=== PATIENT | female | born 1995 | race Native Hawaiian/Other Pacific Islander ===

== ENCOUNTER 2017-02-06 00:05 | Emergency (ER) | payer OTHER ==
[~2017-02-06] VITALS: Ht 162.6 cm; Wt 67.2 kg
[~2017-02-06 00:05] MED LIST: CIPR0.3S RIGHT EAR
[2017-02-06 00:19] VITALS: BP 120/71; PULSE 77; RESP 16; TEMP 98.6; O2SAT 100
[2017-02-06] MEDS ORDERED: MONT10TA2 PO (00:55)
--- NOTE | 2017-02-06 01:51 | PD ---
HPI Chief Complaint: Eye Problems/Injury Time Seen by Provider: 01:40 Travel History International Travel<30 days: Yes Contact w/Intl Traveler<30days: [place] of Country Traveled to: [place] Traveled to known affect area: No History of Present Illness HPI The patient is a 21-year-old female that tripped in a dark bedroom heading to bed, she had just removed her contacts, and hit the corner of a bed frame in the right eye. She did not hit the right eye, she hit the inferior orbit of the right eye and sustained a laceration about 6 mm in length. There was no loss of consciousness and she denies any nausea or vomiting. PFSH Past Medical History Medical History: Denies Significant Hx Hx Anticoagulant Therapy: No Cardiovascular Problems: No Chemotherapy: No Cerebrovascular Accident: No Diabetes: No Respiratory: No Immunizations Current: Yes Tetanus Vaccination: > 5 Years Influenza Vaccination: No ?: Not LMP: 01/21/17 : 0 Past Surgical History Surgical History: No Previous Surgery Hysterectomy: No Social History Alcohol Use: No Tobacco Use: No Substance Use: No Allergies-Medications (Allergen,Severity, Reaction): Coded Allergies: No Known Allergies (Unverified , 02/06/17) Reported Meds & Prescriptions Reported Meds & Active Scripts Active Reported Singulair (Montelukast Sodium) 10 Mg Tab 10 Mg PO DAILY PRN Review of Systems Except as stated in HPI: all other systems reviewed are Neg Physical Exam Narrative GENERAL: Well-nourished, well-developed patient. SKIN: Focused skin assessment warm/dry. There is a superficial 6 mm laceration below the right eye. There is no associated bony deformity. Extraocular movements are normal. There is no evidence of trauma in the eye, no conjunctivitis or hyphema and the pupils are equal and react to light. HEAD: Normocephalic. EYES: No scleral icterus. No injection or drainage. NECK: Supple, trachea midline. No JVD or lymphadenopathy. CARDIOVASCULAR: Regular rate and rhythm without murmurs, gallops, or rubs. RESPIRATORY: Breath sounds equal bilaterally. No accessory muscle use. GASTROINTESTINAL: Abdomen soft, non-tender, nondistended. MUSCULOSKELETAL: No cyanosis, or edema. BACK: Nontender without obvious deformity. No CVA tenderness. Data Data Last Documented VS Vital Signs Date Time Temp Pulse Resp B/P Pulse Ox O2 Delivery O2 Flow Rate FiO2 7/30/17 00:19 98.6 77 16 120/71 100 MDM Medical Decision Making Medical Screen Exam Complete: Yes Emergency Medical Condition: Yes Medical Record Reviewed: Yes Differential Diagnosis Laceration needing sutures, laceration not requiring sutures, fracture orbit Narrative Course There is no clinical evidence of a fracture of the orbit. The laceration could have sutures. The laceration is parallel with the skin crease lines and a suture may actually make the appearance of the wound worse. We will Dermabond the laceration tonight, the patient will return if she has any problems. Impression: Minor laceration Diagnosis Primary Impression: Laceration of face Additional Instructions: Stay out of the ocean and try to keep the wound clean and dry. If the skin glue comes off use antibiotic ointment. Return to emergency department if you have any problems. Med/Other Pt SpecificInfo: No Change to Meds Disposition: 01 DISCHARGE HOME Condition: Stable Lee Kc MD Feb 06, 2017 01:50
== END 2017-02-06 02:03 | disposition home or self-care (01) ==
LOC: PHED 00:05
DX: S01.81XA Laceration without foreign body of other part of head, initial encounter (principal); W18.40XA Slipping, tripping and stumbling without falling, unspecified, initial encounter; Y93.89 Activity, other specified; Y92.003 Bedroom of unspecified non-institutional (private) residence as the place of occurrence of the external cause
CPT/HCPCS: 12011

== ENCOUNTER → 2017-02-09 | Outpatient (CLI) | payer OTHER ==
[~2017-02-09] MED LIST changes: -CIPR0.3S RIGHT EAR; +MONT10TA2 PO
[2017-02-09 13:15] LABS: HEMATOCRIT 35.2 % (35.0-46.0); MEAN CORPUSCULAR HEMOGLOBIN 30.6 PG (27.0-34.0); MEAN CORPUSCULAR HGB CONC 34.8 % (32.0-36.0); PLATELET COUNT 209 TH/MM3 (150-450); REVIEW FLAG FINAL; WHITE BLOOD COUNT 6.9 TH/MM3 (4.0-11.0)
[2017-02-09 13:33] LABS: ALT (GPT) 33 U/L (10-53); ANION GAP 6 MEQ/L (5-15); AST (GOT) 16 U/L (15-37); BICARBONATE 25.2 MEQ/L (21.0-32.0); BLOOD UREA NITROGEN 16 MG/DL (7-18); CHLORIDE 105 MEQ/L (98-107); GLOMERULAR FILTRATION RATE 89 ML/MIN (>89); GLUCOSE,FASTING 80 MG/DL (74-99); POTASSIUM 3.9 MEQ/L (3.5-5.1); SODIUM (NA) 136 MEQ/L (136-145)
[2017-02-09 13:42] LABS: BLOOD, URINE NEG (NEG); GLUCOSE,URINE NEG (NEG); KETONE, URINE NEG (NEG); MUCUS URINE FEW /lpf (OCC); NITRITE,URINE NEG (NEG); PH, URINE 5.5 (5.0-8.5); SQUAMOUS EPITHELIAL CELL URINE 1 /hpf (0-5); URINE COLOR YELLOW (YELLW/STRAW)
[2017-02-09 13:58] LABS: ALKALINE PHOSPHATASE 51 U/L (45-117); HDL CHOLESTEROL 54.4 MG/DL (40.0-60.0); LDL CHOLESTEROL 110 MG/DL (0-99); THYROXINE (T4) 7.6 MCG/DL (4.8-13.9); TOTAL BILIRUBIN ADULT 0.6 MG/DL (0.2-1.0)
== END ==
LOC: PLAB 07:09
PROVIDERS: ATTEND Internal Medicine
DX: Z00.00 Encounter for general adult medical examination without abnormal findings (principal)
CPT/HCPCS: 80053; 80061; 81001; 82607; 82746; 84436; 84443; 85027